=== PATIENT | male | born 1975 | race Caucasian/White ===

== ENCOUNTER 2017-10-23 08:01 | Day surgery (SDC) | payer BC ==
[2017-10-23] MEDS ORDERED: APRESOLINE 20 MG/ML INJ IV ONE (08:02)
[2017-10-23] MEDS ORDERED: TORAdol 30 mg Injection IJ ONE (08:02)
[2017-10-23] MEDS ORDERED: SUBLIMAZE 100 MCG/2 ML IV ONE (08:02)
[2017-10-23] MEDS ORDERED: Zofran 4 MG/2 ML VIAL IV ONE (08:02)
[2017-10-23] MEDS ORDERED: Decadron 4 MG INJ IV ONE (08:02)
[2017-10-23] MEDS ORDERED: DIPRIVAN 200 MG/20 ML IV ONE (08:02)
[2017-10-23] MEDS ORDERED: Quelicin Fliptop 200 MG/10 ML IJ ONE (08:02)
--- NOTE | 2017-10-23 08:40 | HP ---
DATE OF SURGERY: 10/23/2017 HISTORY OF PRESENT ILLNESS: The patient is a 42 year-old with infected ruptured cyst site on his neck that is increasing in size and decreased in size after drainage and antibiotic. He is in need of definitive excision possible packing. PAST MEDICAL HISTORY: Diabetes, hypertension, reflux. PAST SURGICAL HISTORY: Micro-discectomy in the past. MEDICATIONS: Include lisinopril, Glyburide, Metformin, omeprazole, famotidine, Jardiance, Victoza, atorvastatin for some hypercholesterolemia. ALLERGIES: KEFLEX, SULFA, CINNAMON. FAMILY HISTORY: Diabetes, heart disease. SOCIAL HISTORY: He quit smoking, occasional alcohol use denies abuse. REVIEW OF SYSTEMS: Twelve systems reviewed. No chest pain or palpitations otherwise pertinent for as noted above. PHYSICAL EXAMINATION: GENERAL: No acute distress. HEENT: Sclerae nonicteric. NECK: He does have a ruptured cyst site on right side of his neck otherwise no JVD. CHEST: Equal excursion, noblabored breathing. CVS: Regular rate and rhythm. ABDOMEN: Soft, nondistended. EXTREMITIES: No significant edema. NEURO: Alert, moving extremities symmetrically. IMPRESSION: Ruptured cyst site right neck. I feel the patient will benefit from excisional biopsy possible packing pending operative findings. Risks and benefits explained in detail including but not limited to bleeding or infection, possibility of failure to heal the wound, possibility of what we excise likely will not recur once he heals the wound but he could get similar cyst or infection adjacent to or elsewhere on his neck, back or body. He understands as well as risk of sensory or motor nerve irritation, scar formation or injury, risk of droop lip, weakness, numbness possibly fci. He understands all of the above but not limited to, will proceed with excisional biopsy ruptured cyst site right neck possible packing pending operative findings.
[2017-10-23] MEDS ORDERED: Lactated Ringers 1,000 ML IV ONE (09:02)
[2017-10-23] MEDS ORDERED: Sensorcaine 0.25% 10 ML ONE (09:02)
[2017-10-23] MEDS ORDERED: Lactated Ringers 1,000 ML IV SCH (10:00)
[2017-10-23] MEDS ORDERED: CLINDAMYCIN-D5W 900 MG/50 ML*** 900 MG/50 ML BAG IV ONE (11:21)
[2017-10-23] MEDS ORDERED: SUBLIMAZE 100 MCG/2 ML ONE (12:17)
[2017-10-23 13:46] VITALS: BP 140/87; PULSE 112; O2SAT 95
--- NOTE | 2017-10-23 14:01 | OP ---
SURGERY DATE/TIME: 10/23/2017 1130 PREOPERATIVE DIAGNOSIS: Symptomatic ruptured cyst site right neck. POSTOPERATIVE DIAGNOSIS: Symptomatic ruptured cyst site right neck. PROCEDURE: Excision and biopsy of ruptured cyst site right neck with intermediate closure (approximately 2 cm with margins). SURGEON: Dr. Christopher Branham. ANESTHESIA: General. ESTIMATED BLOOD LOSS: Minimal. INDICATIONS: As noted above. Risks and benefits explained in detail and not limited to and consent obtained. The site was confirmed and marked in the preoperative holding area. It was a little smaller than it was previously as he had been on some antibiotics. DESCRIPTION OF PROCEDURE AND FINDINGS: The patient is taken to the operating room. General anesthesia introduced. Neck is prepped and draped in usual sterile fashion. After official time out and no disagreement with planned procedure, marking out around the indurated area of the ruptured cyst site he also had a pit a little more laterally. It was felt that this should be excised here. Spindle-shaped incision pattern dissection carried down dissecting it directly off the underlying platysma. The specimen passed off. It measured about 2 cm with margins including the reaction around the ruptured cyst site. There was a small external jugular vein with venous branch that was controlled with 3-0 Vicryl suture ligature. Otherwise the wound was closed with interrupted 3-0 Vicryl closing the deep and superficial subcu. Skin closed with 4-0 Monocryl running in subcuticular fashion. Steri-Strips and sterile dressing applied. 0.25% Marcaine local injected along the area. The patient tolerated the procedure well. There were no immediate complications. There was no family available to discuss the findings with out in the waiting area.
== END 2017-10-23 14:20 | disposition home or self-care (01) ==
LOC: SDC 08:01
PROVIDERS: ATTEND Surgery
DX: L72.9 Follicular cyst of the skin and subcutaneous tissue, unspecified (principal); R20.8 Other disturbances of skin sensation; E11.9 Type 2 diabetes mellitus without complications; I10 Essential (primary) hypertension; K21.9 Gastro-esophageal reflux disease without esophagitis; E78.00 Pure hypercholesterolemia, unspecified; Z79.899 Other long term (current) drug therapy
CPT/HCPCS: 88304; J0330; J0360; J1100; J1885; J2405; J2704; J3010

== ENCOUNTER 2018-04-25 05:49 | Day surgery (SDC) | payer BC ==
[2018-04-25] MEDS ORDERED: DIPRIVAN 200 MG/20 ML IV ONE (05:50)
[2018-04-25] MEDS ORDERED: Ketamine HCl 50 MG/ML IV ONE (05:50)
[2018-04-25] MEDS ORDERED: Lactated Ringers 1,000 ML IV ONE (06:08)
[2018-04-25] MEDS ORDERED: Lactated Ringers 1,000 ML IV SCH (06:30)
[2018-04-25 08:29] VITALS: PULSE 99; O2SAT 95
[2018-04-25 08:46] VITALS: BP 145/73
--- NOTE | 2018-04-25 10:54 | OP ---
SURGERY DATE/TIME: 04/25/2018 0740 PREOPERATIVE DIAGNOSES: 1) Epigastric abdominal pain. 2) Chest pain. POSTOPERATIVE DIAGNOSIS: Presumed delayed gastric emptying. PROCEDURE: EGD. SURGEON: Harman Barney M.D. ANESTHESIA: MAC by Christopher Quintanilla CRNA. ESTIMATED BLOOD LOSS: None. SPECIMENS: None. DESCRIPTION OF PROCEDURE: After informed written consent was obtained, the patient was taken to the endoscopy suite. A bite block was inserted. He underwent monitored anesthesia. The endoscope was inserted in the posterior oropharynx and under direct visualization the esophagus was traversed. There were no obvious esophageal mucosal abnormalities upon entry. Upon entry into the stomach there was normal rugated gastric mucosa. There was fairly large amount of retrained gastric contents in the gastric cavity. There were no obvious ulcerations. No areas of bleeding, etc. The pylorus was traversed and the first and second portions of the duodenum appeared to be within normal limits. Upon withdrawal again there were no obvious mucosal abnormalities. The only significant finding was food particles in the gastric cavity. The scope was removed and the patient was transferred to the recovery room in good condition.
== END 2018-04-25 08:45 | disposition home or self-care (01) ==
LOC: SDC 05:49
PROVIDERS: ATTEND Family Medicine
DX: K30 Functional dyspepsia (principal); R07.9 Chest pain, unspecified; E11.9 Type 2 diabetes mellitus without complications; Z79.899 Other long term (current) drug therapy
CPT/HCPCS: 82962; 94250; J2704

== ENCOUNTER 2022-03-14 13:28 | Emergency (ER) | payer OTHER ==
[2022-03-14 14:15] VITALS: BP 120/73; O2SAT 98
--- NOTE | 2022-03-14 14:44 | ERPHSYRPT ---
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 This happened just prior to arrival. There is no other injury or problem. Timing/Duration: today, other Severity: severe Location: hands (Left index finger distal pad) Allergies/Adverse Reactions: cephalexin [From Keflex] Allergy (Severe, Verified 03/14/22 13:58) Hives cinnamon Allergy (Severe, Verified 03/14/22 13:58) Rash Sulfa (Sulfonamide Antibiotics) Adverse Reaction (Verified 03/14/22 13:58) Nausea Home Medications: Famotidine 20 mg PO DAILY 10/11/17 [History] Omeprazole 40 mg PO DAILY 10/11/17 [History] Aspirin EC 81 mg [Ecotrin 81 mg] 81 mg PO DAILY 04/20/18 [History] Atorvastatin Calcium [Lipitor 40Mg] 40 mg PO DAILY 04/20/18 [History] Carvedilol 12.5 mg [Coreg 12.5 mg] 12.5 mg PO BID 04/20/18 [History] Lisinopril/Hydrochlorothiazide [Lisinopril-Hctz 20-12.5 mg Tab] 1 each PO BID 04/20/18 [History] Insulin Lispro [Humalog] 0 unit SQ UD 04/12/21 [History] Insulin NPH Hum/Reg Insulin Hm [Humulin 70-30 Vial] 100 unit SQ BID 04/12/21 [History] Dapagliflozin Propanediol [Farxiga] 10 mg DAILY 03/14/22 [History] Escitalopram Oxalate [Lexapro] 20 mg PO DAILY 03/14/22 [History] Gabapentin 300 mg PO BID 03/14/22 [History] Testosterone Cypionate 100 mg IM BID 03/14/22 [History] Tirzepatide [Mounjaro] 7.5 mg SQ WEEKLY 03/14/22 [History] Tramadol HCl 100 mg PO BID 03/14/22 [History] Hx Tetanus, Diphtheria Vaccination/Date Given: No Hx Influenza Vaccination/Date Given: No Hx Pneumococcal Vaccination/Date Given: No Immunizations Up to Date: Yes Travel Risk - International Travel Have you traveled outside of the country in past 3 weeks: No - Coronavirus Screening Are you exhibiting any of the following symptoms?: No Close contact with a COVID-19 positive Pt in past 14-21 Days: No - Vaccine Status Have you recieved a Covid-19 vaccination: Yes Health Services Director: Unknown - Vaccination Dates Date of 2cond Vaccination (if applicable): 2020 Dates if Unknown: ? - Review of Systems Constitutional: No Fever, No Chills Eyes: No Symptoms Ears, Nose, & Throat: No Symptoms Respiratory: No Cough, No Dyspnea Cardiac: No Chest Pain, No Edema, No Syncope Abdominal/Gastrointestinal: No Abdominal Pain, No Nausea, No Vomiting, No Diarrhea Genitourinary Symptoms: No Dysuria Musculoskeletal: No Back Pain, No Neck Pain Skin: No Rash Neurological: No Dizziness, No Focal Weakness, No Sensory Changes Psychological: No Symptoms Endocrine: No Symptoms All Other Systems: Reviewed and Negative - Past Medical History Pertinent Past Medical History: Yes Neurological History: No Pertinent History ENT History: No Pertinent History Cardiac History: Hypertension, Other Respiratory History: No Pertinent History Endocrine Medical History: Diabetes Type II Musculoskeletal History: No Pertinent History GI Medical History: GERD History: No Pertinent History Psycho-Social History: Anxiety Male Reproductive Disorders: No Pertinent History Other Medical History: hx tachycardia - Past Surgical History Past Surgical History: No Neuro Surgical History: No Pertinent History Cardiac: Cardiac Catheterization Respiratory: No Pertinent History Gastrointestinal: No Pertinent History Genitourinary: No Pertinent History Musculoskeletal: Orthopedic Surgery, Other Male Surgical History: No Pertinent History Other Surgical History: microdiscectomy, neck lesion,left shoulder - Social History Smoking Status: Former smoker How long have you smoked: 15 years Exposure to second hand smoke: No Drug Use: none Patient Lives Alone: No - Nursing Vital Signs Nursing Vital Signs: Initial Vital Signs Temperature 96.7 F 03/14/22 14:14 Pulse Rate 91 H 03/14/22 14:14 Respiratory Rate 18 03/14/22 14:14 Blood Pressure 120/73 03/14/22 14:14 O2 Sat by Pulse Oximetry 98 03/14/22 14:14 Pain Scale Pain Intensity 3 - Physical Exam General Appearance: mild distress Eye Exam: PERRL/EOMI, eyes nml inspection Ears, Nose, Throat Exam: normal ENT inspection Neck Exam: normal inspection, non-tender, supple Extremity Exam: normal range of motion, lacerations (Flap-like laceration distal pad left index finger) Neurologic Exam: alert, oriented x 3, cooperative Skin Exam: laceration SpO2 Interpretation: normal SpO2: 98 O2 Delivery: Room Air Procedures - Laceration/Wound Repair Left Volar Finger Time of Procedure: 14:42 Wound Location: Left, hand (Index finger) Wound Length (cm): 1.5 Wound's Depth, Shape: flap Wound Explored: clean Irrigated: Yes Hibiclens Prep: Yes Anesthesia: 1% Lidocaine Volume Anesthetic (ccs): 2 Wound Debrided: minimal Suture Size/Type: 5-0, nylon Number of Sutures: 2 Layer Closure?: No Sterile Dressing Applied?: Yes - Course Nursing assessment & vital signs reviewed: Yes - Progress Progress: improved - Departure Departure Disposition: Home Clinical Impression: Laceration of left index finger Condition: Stable Critical Care Time: No Referrals: STEPHAINE JEFFERSON MD [Primary Care Provider] - Follow up/PCP as directed Instructions: Wound Care (DC)
[2022-03-14 14:53] VITALS: PULSE 89
== END 2022-03-14 14:53 | disposition home or self-care (01) ==
LOC: ED 13:28
DX: S61.211A Laceration without foreign body of left index finger without damage to nail, initial encounter (principal); W26.0XXA Contact with knife, initial encounter; I10 Essential (primary) hypertension; E11.9 Type 2 diabetes mellitus without complications; Z79.891 Long term (current) use of opiate analgesic; Z79.4 Long term (current) use of insulin; Z79.85 Long-term (current) use of injectable non-insulin antidiabetic drugs
CPT/HCPCS: 12001; 99281